=== PATIENT | female | born 2000 | race Caucasian/White ===

== ENCOUNTER 2019-12-22 10:07 | Emergency (ER) | payer OTHER ==
[~2019-12-22] VITALS: Ht 160 cm; Wt 62.6 kg
[2019-12-22 10:13] VITALS: Ht 160 cm; Wt 62.6 kg
[2019-12-22 11:23] VITALS: BP 120/72
== END 2019-12-22 11:23 | disposition home or self-care (01) ==
LOC: ED 10:07
DX: S91.331A Puncture wound without foreign body, right foot, initial encounter (principal); W22.8XXA Striking against or struck by other objects, initial encounter; Y93.01 Activity, walking, marching and hiking; Y92.096 Garden or yard of other non-institutional residence as the place of occurrence of the external cause; Y99.8 Other external cause status
CPT/HCPCS: 90715